=== PATIENT | male | born 1990 | race Asian ===

== ENCOUNTER 2024-07-09 18:38 | Emergency (ER) | payer OTHER ==
[~2024-07-09] VITALS: Ht 182.9 cm; Wt 74.8 kg
[2024-07-09 19:38] VITALS: PULSE 88; RESP 18; TEMP 98.1
== END 2024-07-09 19:38 | disposition home or self-care (01) ==
LOC: FSED 18:44
DX: S93.491A Sprain of other ligament of right ankle, initial encounter (principal); X50.1XXA Overexertion from prolonged static or awkward postures, initial encounter; Y93.01 Activity, walking, marching and hiking; Y92.89 Other specified places as the place of occurrence of the external cause
CPT/HCPCS: 99284